=== PATIENT | female | born 1950 | race Asian ===

== ENCOUNTER 2019-02-26 21:08 | Inpatient (IN) | payer MEDICARE, MEDICAID ==
[~2019-02-26] VITALS: Ht 149.9 cm; Wt 44.9 kg
[2019-02-26 22:11] LABS: BASOPHILS % 0.1 % (0.0-2.0); EOSINOPHILS % 0.6 % (0.0-5.0); HEMATOCRIT. 38.7 % (36.0-48.0); HEMOGLOBIN. 12.9 g/dL (12.0-16.0); LYMPHOCYTES % 9.6 % (20.0-50.0); MEAN PLATELET VOLUME 9.1 fl (7.4-10.4); NEUTROPHILS % 84.7 % (40.0-76.0); PLATELET 241 x1000/uL (130-400); RED CELL DISTRIBUTION WIDTH 12.3 % (11.6-14.6)
[2019-02-26 22:13] LABS: CHLORIDE 95 mEq/L (98-107)
[2019-02-26] MEDS ORDERED: CEFTRIAXONE 1 G PREMIX 50 ML IV ONE (22:30)
[2019-02-26] MEDS ORDERED: AZITHROMYCIN 500 MG in DEXT 5% WATER 250 ML IV SCH (22:30)
[2019-02-26] MEDS ORDERED: SODIUM CHLORIDE 0.9% 1000ML BAG (SEPSIS BOLUS) IV NR (23:00)
[2019-02-27 01:15] VITALS: BP 137/51
[2019-02-27] MEDS ORDERED: DEXTROSE 50% WATER 50ML SYRINGE IV PRN (03:30)
[2019-02-27] MEDS ORDERED: IPRATROPIUM/ALBUTEROL 0.5-3(2.5)MG/3ML NEB HHN PRN (03:30)
[2019-02-27] MEDS ORDERED: ALCLOMETASONE TOP (03:34)
[2019-02-27] MEDS ORDERED: ALEN70TA68 PO (03:36)
[2019-02-27] MEDS ORDERED: ATOR10TA69 PO (03:37)
[2019-02-27] MEDS ORDERED: AMLO10TA80 PO (03:39)
[2019-02-27] MEDS ORDERED: CALC-1098 PO (03:41)
[2019-02-27] MEDS ORDERED: FLUT9.9S NS (03:50)
[2019-02-27] MEDS ORDERED: FLOV44 INH (03:52)
[2019-02-27] MEDS ORDERED: fluocinonide TOP (03:55)
[2019-02-27 04:00] VITALS: BP 143/60
[2019-02-27] MEDS ORDERED: MEDICATION NOT ON FORMULARY EA (Melatonin 3 MG) PO SCH (04:00)
[2019-02-27] MEDS ORDERED: [UNRECOGNIZED DRUG - OTHER] EACHEYE (04:00)
[2019-02-27] MEDS ORDERED: ACETAMINOPHEN 500 MG PO SCH (04:00)
[2019-02-27] MEDS ORDERED: MEDICATION NOT ON FORMULARY EA (Ranitidine Hcl 150 MG) PO SCH (04:00)
[2019-02-27] MEDS ORDERED: HYDR12.529 PO (04:02)
[2019-02-27] MEDS ORDERED: KETO15CR2 TP (04:05)
[2019-02-27] MEDS ORDERED: LORA10TA7 PO (04:06)
[2019-02-27] MEDS ORDERED: LOSA50TA41 PO (04:08)
[2019-02-27] MEDS ORDERED: ACET167L14 PO (04:10)
[2019-02-27] MEDS ORDERED: MELA3TAB PO (04:12)
[2019-02-27] MEDS ORDERED: MONT10TA24 PO (04:13)
[2019-02-27] MEDS ORDERED: OMEGA ACID PO (04:17)
[2019-02-27] MEDS ORDERED: PROAIR INH (04:25)
[2019-02-27] MEDS ORDERED: RANI150T7 PO (04:27)
[2019-02-27] MEDS ORDERED: CHOL200010 PO (04:28)
[2019-02-27] MEDS ORDERED: IOHEXOL-300 100 ML BOTTLE ONE (04:42)
[2019-02-27] MEDS ORDERED: ACETAMINOPHEN 325MG TABLET PO PRN (05:00)
[2019-02-27] MEDS: IPRATROPIUM/ALBUTEROL 0.5-3(2.5)MG/3ML NEB HHN SCH ×5 (05:11→20:31)
[2019-02-27] MEDS ORDERED: MEDICATION NOT ON FORMULARY EA (Alendronate Sodium 70 MG) PO SCH (07:00)
[2019-02-27] MEDS: INSULIN LISPRO 100 UNITS/ML SUBCUT SCH ×4 (07:13→21:00)
[2019-02-27] MEDS: BLOOD SUGAR DIAGNOSTIC STRIP TEST SCH ×4 (07:13→20:59)
[2019-02-27 08:00] VITALS: BP 138/53
[2019-02-27] MEDS: DIPHENHYDRAMINE 50MG/ML VIAL IV PRN (08:57)
[2019-02-27] MEDS ORDERED: ALCLOMETASONE TOP SCH (09:00)
[2019-02-27] MEDS: CALCIUM CARBONATE/VITAMIN D3 500MG TABLET PO SCH ×2 (09:00→17:00)
[2019-02-27] MEDS ORDERED: FLUOCINONIDE 0.1% TOP SCH (09:00)
[2019-02-27] MEDS ORDERED: KETOCONAZOLE 2% CREAM 15GM TOP SCH (09:00)
[2019-02-27] MEDS ORDERED: FAMOTIDINE 20MG TABLET PO SCH (09:00)
[2019-02-27] MEDS: LOSARTAN POTASSIUM 50 MG TABLET PO SCH (09:04)
[2019-02-27] MEDS: LORATADINE 10MG TABLET PO SCH (09:04)
[2019-02-27] MEDS: POLYVINYL ALCOHOL OPHTH DROPS 15ML EACHEYE SCH (09:05)
[2019-02-27] MEDS: AMLODIPINE 10MG TABLET PO SCH (09:05)
[2019-02-27] MEDS: ENOXAPARIN 40MG/0.4ML SYR SUBCUT SCH (09:05)
[2019-02-27] MEDS: CHOLECALCIFEROL (D3) 1000 UNIT TABLET PO SCH (09:05)
[2019-02-27] MEDS: FISH OIL/OMEGA-3 FATTY ACIDS 1000MG CAPSULE PO SCH ×2 (09:06→17:03)
[2019-02-27] MEDS: HYDROCHLOROTHIAZIDE 12.5MG CAPSULE PO SCH ×2 (09:06→17:04)
[2019-02-27] MEDS: LEVOFLOXACIN 750MG PREMIX 150 ML IV SCH (09:20)
[2019-02-27] MEDS: DIPHENHYDRAMINE 25MG CAPSULE PO SCH ×2 (10:00→17:03)
[2019-02-27] MEDS ORDERED: METHYLPREDNISOLONE SOD SUCC 40 MG/ML VIAL IV SCH (10:00)
[2019-02-27 12:00] VITALS: BP 104/46
[2019-02-27 12:15] LABS: CLARITY URINE CLEAR (CLEAR); COLOR URINE YELLOW (YELLOW); KETONES URINE NEGATIVE (NEGATIVE); LEUKOCYTE ESTERASE URINE 1+ (NEGATIVE); NITRITE URINE NEGATIVE (NEGATIVE); OCCULT BLOOD URINE NEGATIVE (NEGATIVE); PH URINE 5.5 (4.5-8.0); PROTEIN URINE NEGATIVE (NEGATIVE); SPECIFIC GRAVITY URINE 1.023 (1.005-1.030); UROBILINOGEN URINE 0.2 E.U./dL (0.2-1.0)
[2019-02-27] MEDS ORDERED: METHYLPREDNISOLONE SOD SUCC 125 MG/2 ML VIAL IV SCH (12:45)
[2019-02-27 13:15] LABS: BG BASE EXCESS 4.8 mmol/L (-2.0-2.0); BG DEOXYHEMOGLOBIN 7.4 % (0.0-5.0); BG FRACTION INSPIRED OXYGEN 21; BG HCO3 ACT 29.8 mmol/L (22.0-26.0); BG METHEMOGLOBIN 0.3 % (0.0-1.5); BG OXYGEN SATURATION 92.5 % (92.0-98.5); BG OXYHEMOGLOBIN 91.3 % (94.0-97.0); BG PO2 63.1 mmHg (75.0-100.0); BG SAMPLE SITE LEFT BRACHIAL; BG TOTAL HEMOGLOBIN 11.7 g/dL (12.0-18.0); BG VENT MODE ROOM AIR
[2019-02-27] MEDS: FAMOTIDINE 20MG TABLET PO SCH (17:03)
[2019-02-27] MEDS: METHYLPREDNISOLONE SOD SUCC 125 MG/2 ML VIAL IV SCH (17:04)
[2019-02-27 20:00] VITALS: BP 121/44
[2019-02-27] MEDS: FLUTICASONE PROPIONATE 50MCG/SPRAY BOTTLE BOTHNSTRLS SCH (20:58)
[2019-02-27] MEDS ORDERED: MONTELUKAST SODIUM 10MG TABLET PO SCH (21:00)
[2019-02-27] MEDS ORDERED: ATORVASTATIN CALCIUM 10MG TABLET PO SCH (21:00)
[2019-02-28] VITALS: BP 111/45
[2019-02-28] MEDS: IPRATROPIUM/ALBUTEROL 0.5-3(2.5)MG/3ML NEB HHN SCH ×4 (00:25→12:55)
[2019-02-28] MEDS: METHYLPREDNISOLONE SOD SUCC 125 MG/2 ML VIAL IV SCH ×2 (02:58→09:30)
[2019-02-28 04:00] VITALS: BP 136/61
[2019-02-28 06:29] LABS: CHLORIDE 99 mEq/L (98-107)
[2019-02-28 06:32] LABS: HEMATOCRIT. 34.4 % (36.0-48.0); HEMOGLOBIN. 11.7 g/dL (12.0-16.0); MEAN CORPUSCULAR HEMOGLOBIN 30.5 pg (28.0-32.0); MEAN CORPUSCULAR VOLUME 89.5 fL (81.0-99.0); MEAN PLATELET VOLUME 9.3 fl (7.4-10.4); PLATELET 212 x1000/uL (130-400); RED BLOOD CELL COUNT 3.85 mill/uL (4.2-5.4); RED CELL DISTRIBUTION WIDTH 12.2 % (11.6-14.6)
[2019-02-28] MEDS ORDERED: ALENDRONATE SODIUM 35MG TABLET PO SCH (07:00)
[2019-02-28] MEDS: BLOOD SUGAR DIAGNOSTIC STRIP TEST SCH ×2 (07:47→12:40)
[2019-02-28] MEDS: INSULIN LISPRO 100 UNITS/ML SUBCUT SCH ×2 (07:48→13:10)
[2019-02-28 08:00] VITALS: BP 151/89
[2019-02-28] MEDS ORDERED: POTASSIUM CHLORIDE 20MEQ TABLET SR PO SCH (09:00)
[2019-02-28] MEDS: LEVOFLOXACIN 750MG PREMIX 150 ML IV SCH (09:30)
[2019-02-28] MEDS: POLYVINYL ALCOHOL OPHTH DROPS 15ML EACHEYE SCH (09:32)
[2019-02-28] MEDS: FLUTICASONE PROPIONATE 50MCG/SPRAY BOTTLE BOTHNSTRLS SCH (09:32)
[2019-02-28] MEDS: ENOXAPARIN 40MG/0.4ML SYR SUBCUT SCH (09:33)
[2019-02-28] MEDS: CHOLECALCIFEROL (D3) 1000 UNIT TABLET PO SCH (09:34)
[2019-02-28] MEDS: FAMOTIDINE 20MG TABLET PO SCH (09:34)
[2019-02-28] MEDS: LORATADINE 10MG TABLET PO SCH (09:34)
[2019-02-28] MEDS: DIPHENHYDRAMINE 25MG CAPSULE PO SCH (09:34)
[2019-02-28] MEDS: AMLODIPINE 10MG TABLET PO SCH (09:35)
[2019-02-28] MEDS: LOSARTAN POTASSIUM 50 MG TABLET PO SCH (09:35)
[2019-02-28] MEDS ORDERED: HYDROCHLOROTHIAZIDE 12.5MG CAPSULE PO SCH (10:30)
[2019-02-28 12:00] VITALS: BP 117/43
[2019-02-28] MEDS: DIPHENHYDRAMINE 50MG/ML VIAL IV PRN (12:17)
[2019-02-28] MEDS: FISH OIL/OMEGA-3 FATTY ACIDS 1000MG CAPSULE PO SCH (12:17)
[2019-02-28 12:49] VITALS: BP 117/43
[2019-02-28 16:27] LABS: PLATELET ESTIMATE NORMAL
[2019-03-01] MEDS ORDERED: LEVOFLOXACIN 250MG TABLET PO SCH (11:00)
== END 2019-02-28 14:35 | disposition home or self-care (01) | DRG 720 ==
LOC: EDBD 21:08 → ER 21:08 → 7WST 22:32 → ENRESERV 23:06
PROVIDERS: ADMIT Internal Medicine; ATTEND Internal Medicine
DX: A41.9 Sepsis, unspecified organism (principal); J96.00 Acute respiratory failure, unspecified whether with hypoxia or hypercapnia; E87.2 Acidosis; J18.9 Pneumonia, unspecified organism; E87.8 Other disorders of electrolyte and fluid balance, not elsewhere classified; I27.20 Pulmonary hypertension, unspecified; J84.10 Pulmonary fibrosis, unspecified; E87.1 Hypo-osmolality and hyponatremia; E78.00 Pure hypercholesterolemia, unspecified; E78.5 Hyperlipidemia, unspecified; I10 Essential (primary) hypertension; J44.0 Chronic obstructive pulmonary disease with (acute) lower respiratory infection; Z20.1 Contact with and (suspected) exposure to tuberculosis; Z82.5 Family history of asthma and other chronic lower respiratory diseases; Z86.11 Personal history of tuberculosis; Z79.899 Other long term (current) drug therapy
CPT/HCPCS: 36415; 36600; 71045; 71260; 80048; 80053; 81003; 82375; 82805; 82962; 83036; 83605; 83880; 84484; 85025; 85379; 93005; 94640; 96365; 99285; J0456; J0696; J1200; J1650; J1956; J2920; J2930; J7030; J7060; J7620; Q0163; Q9967